=== PATIENT | male | born 1945 | race Caucasian/White ===

== ENCOUNTER 2019-02-17 12:06 | Inpatient (IN) | payer MEDICARE, MEDICAID ==
[~2019-02-17] VITALS: Ht 165.1 cm; Wt 77.1 kg
[~2019-02-17 12:06] MED LIST: ATEN50TA PO; ATOR40TA70 PO; CLOP75TA33 PO; LOSA50TA41 PO
[2019-02-17 13:20] LABS: BASOPHILS % 0.6 % (0.0-2.0); CHLORIDE 110 mEq/L (98-107); EOSINOPHILS % 3.2 % (0.0-5.0); HEMATOCRIT. 45.3 % (42.0-52.0); HEMOGLOBIN. 15.5 g/dL (14.0-18.0); LYMPHOCYTES % 21.6 % (20.0-50.0); MEAN CORPUSCULAR HEMOGLOBIN 32.7 pg (28.0-32.0); MEAN CORPUSCULAR VOLUME 95.8 fL (80.0-94.0); MEAN PLATELET VOLUME 9.4 fl (7.4-10.4); MONOCYTES % 9.7 % (2.0-8.0); NEUTROPHILS % 64.9 % (40.0-76.0); PLATELET 132 x1000/uL (130-400); RED BLOOD CELL COUNT 4.73 mill/uL (4.7-6.1); RED CELL DISTRIBUTION WIDTH 13.9 % (11.6-14.6)
[2019-02-17] MEDS ORDERED: SODIUM CHLORIDE 0.45% 1,000 ML IV SCH (14:30)
[2019-02-17 16:26] VITALS: BP 144/67
[2019-02-17] MEDS ORDERED: RANI-655 PO (16:36)
[2019-02-17] MEDS ORDERED: OLME20TA13 PO (16:36)
[2019-02-17] MEDS ORDERED: IPRATROPIUM/ALBUTEROL 0.5-3(2.5)MG/3ML NEB HHN PRN (16:45)
[2019-02-17] MEDS ORDERED: DOCUSATE SODIUM 100MG CAPSULE PO PRN (16:45)
[2019-02-17] MEDS ORDERED: ONDANSETRON HCL 4MG/2ML INJ IV PRN (16:45)
[2019-02-17] MEDS ORDERED: HYDROCODONE/ACETAMINOPHEN 5/325MG TABLET PO PRN (16:45)
[2019-02-17] MEDS ORDERED: ACETAMINOPHEN 325MG TABLET PO PRN (16:45)
[2019-02-17] MEDS ORDERED: LORAZEPAM 0.5MG TABLET PO PRN (16:45)
[2019-02-17] MEDS ORDERED: INFLUENZA VIRUS VACCINE(AFLURIA) 0.5ML SYR IM ONE (16:45)
[2019-02-17 20:00] VITALS: BP 163/73
[2019-02-17] MEDS ORDERED: ATORVASTATIN CALCIUM 40MG TABLET PO SCH (21:00)
[2019-02-17] MEDS ORDERED: FAMOTIDINE 20MG TABLET PO SCH (21:00)
[2019-02-18] VITALS: BP 158/78
[2019-02-18 04:00] VITALS: BP 127/62
[2019-02-18 06:49] LABS: BASOPHILS % 0.7 % (0.0-2.0); EOSINOPHILS % 5.2 % (0.0-5.0); HEMOGLOBIN. 15.3 g/dL (14.0-18.0); LYMPHOCYTES % 22.1 % (20.0-50.0); MEAN CORPUSCULAR HEMOGLOBIN 32.8 pg (28.0-32.0); MEAN CORPUSCULAR VOLUME 96.5 fL (80.0-94.0); MEAN PLATELET VOLUME 9.5 fl (7.4-10.4); MONOCYTES % 9.4 % (2.0-8.0); NEUTROPHILS % 62.6 % (40.0-76.0); PLATELET 123 x1000/uL (130-400); RED BLOOD CELL COUNT 4.66 mill/uL (4.7-6.1); RED CELL DISTRIBUTION WIDTH 13.9 % (11.6-14.6)
[2019-02-18 08:00] VITALS: BP 147/70
[2019-02-18 08:10] LABS: CHLORIDE 109 mEq/L (98-107)
[2019-02-18] MEDS ORDERED: CLOPIDOGREL 75MG TABLET PO SCH (09:00)
[2019-02-18 12:00] VITALS: BP 145/73
[2019-02-18 12:02] VITALS: BP 147/70
== END 2019-02-18 13:04 | disposition home or self-care (01) | DRG 310 ==
LOC: ER 12:13 → 5WST 13:52 → EDBEDREQ 13:56 → ENRESERV 14:36
PROVIDERS: ADMIT Internal Medicine; ATTEND Internal Medicine
DX: R00.1 Bradycardia, unspecified (principal); K57.90 Diverticulosis of intestine, part unspecified, without perforation or abscess without bleeding; I25.10 Atherosclerotic heart disease of native coronary artery without angina pectoris; E78.5 Hyperlipidemia, unspecified; Z86.74 Personal history of sudden cardiac arrest; I11.9 Hypertensive heart disease without heart failure; Z95.5 Presence of coronary angioplasty implant and graft; K64.9 Unspecified hemorrhoids; E78.00 Pure hypercholesterolemia, unspecified; Z82.49 Family history of ischemic heart disease and other diseases of the circulatory system; Z95.1 Presence of aortocoronary bypass graft; I25.2 Old myocardial infarction
CPT/HCPCS: 36415; 71045; 80048; 83735; 83880; 84443; 84484; 93005; 93306; 99285

== ENCOUNTER 2019-10-31 22:13 | Emergency (ER) | payer MEDICARE, MEDICAID ==
[~2019-10-31] VITALS: Ht 167.6 cm; Wt 78.0 kg
[~2019-10-31 22:13] MED LIST changes: -ATEN50TA PO; +RANI-655 PO
[2019-11-01 00:33] VITALS: BP 148/71
== END 2019-11-01 00:35 | disposition home or self-care (01) ==
LOC: ER 22:13
DX: I10 Essential (primary) hypertension (principal); I25.2 Old myocardial infarction; I25.709 Atherosclerosis of coronary artery bypass graft(s), unspecified, with unspecified angina pectoris; Z91.14 Patient's other noncompliance with medication regimen; Z79.899 Other long term (current) drug therapy; Z98.890 Other specified postprocedural states
CPT/HCPCS: 93005; 99283